=== PATIENT | female | born 1990 | race Hispanic/Latino ===

== ENCOUNTER 2017-04-12 08:51 | Inpatient (IN) | payer SELFPAY ==
[~2017-04-12] VITALS: Ht 149.9 cm; Wt 88.3 kg
[2017-04-12] MEDS ORDERED: ACETAMINOPHEN 325 MG TAB ONE ×2 (09:03→20:05)
[2017-04-12] MEDS ORDERED: SODIUM CHLORIDE 0.9% 1000ML 2,000 ML IV ONE (09:09)
[2017-04-12 09:25] LABS: HEMATOCRIT 27.9 % (36-48); MEAN CORPUSCULAR HEMOGLOBIN 18.1 pg (27.0-33.0); MEAN CORPUSCULAR HGB CONC 30.9 g/dL (32.0-36.0); MEAN CORPUSCULAR VOLUME 58.5 fL (79-99); PLATELET COUNT (AUTO) 252 K/uL (130-400); RED BLOOD CELL COUNT(AUTO) 4.77 MIL/uL (4.00-5.50); RED CELL DISTRIBUTION WIDTH 20.2 % (11.0-15.5)
[2017-04-12 09:29] LABS: WHITE BLOOD COUNT (AUTO) 36.1 K/uL (4.8-10.8)
[2017-04-12 09:30] LABS: RAPID GROUP A STREP NEGATIVE (NEGATIVE)
[2017-04-12] MEDS ORDERED: CEFTRIAXONE SODIUM 1 GM ONE ×2 (09:33→14:12)
[2017-04-12 09:35] LABS: CREATININE 1.5 mg/dL (0.5-1.5); POTASSIUM 3.2 mmol/L (3.5-5.1)
[2017-04-12 09:49] LABS: BAND NEUTROPHILS % (MANUAL) 26 % (0-2); LYMPHOCYTES % (MANUAL) 1 % (22-44); MAN.DIFF COMMENT-IMPRESSION MANUAL DIFFERENTIAL; SEGMENTED NEUTROPHILS % 73 % (40-70)
[2017-04-12 10:19] LABS: APPEARANCE,URINE Cloudy (CLEAR); BILIRUBIN,URINE Negative (NEGATIVE); COLOR,URINE Yellow (YELLOW); GLUCOSE, URINE (UA) Negative (NEGATIVE); KETONES,URINE Negative (NEGATIVE); LEUKOCYTE ESTERASE ,URINE Trace (NEGATIVE); NITRATE,URINE Negative (NEGATIVE); OCCULT BLOOD,URINE Negative (NEGATIVE); PH,URINE 5.5 (5.0-8.0); PROTEIN,URINE POS 1+ (NEGATIVE)
[2017-04-12 10:22] LABS: HCG,QUAL RESULT NEGATIVE (NEGATIVE)
[2017-04-12] MEDS ORDERED: AZITHROMYCIN 500MG+NS 250ML 250 ML IV ONE (10:49)
[2017-04-12 11:06] LABS: BACTERIA,URINE Rare /HPF (None Seen); RBC,URINE 0-1 /HPF (0-1)
[2017-04-12 11:07] LABS: MUCUS,URINE Rare LPF (None Seen); SQUAMOUS EPITHELIAL CELL,UR Few /LPF (0-2)
[2017-04-12] MEDS ORDERED: SODIUM CHLORIDE 0.9% 1000ML 1,000 ML IV ONE ×2 (12:23→14:12)
[2017-04-12] MEDS ORDERED: ACETAMINOPHEN-CODEINE ELIXIR 5 ML UDCUP ONE (17:10)
[2017-04-12] MEDS ORDERED: IPRATROPIUM/ALBUTEROL SULFATE 3 ML SOLUTION IH ONE (19:54)
[2017-04-12 21:00] VITALS: BP 98/72
[2017-04-12] MEDS ORDERED: ONDANSETRON HCL 4 MG/2 ML VIAL IV PRN (22:30)
[2017-04-12] MEDS ORDERED: HYDRALAZINE HCL 20 MG/ML VIAL IV PRN (22:30)
[2017-04-12] MEDS: SODIUM CHLORIDE 0.9% 1000ML 1,000 ML IV SCH (22:57)
[2017-04-12] MEDS: METHYLPREDNISOLONE SOD SUCC 125MG/2ML VIAL IV SCH (22:57)
[2017-04-12] MEDS: POTASSIUM CHLORIDE 10% ELIXIR 20 MEQ/15 ML UDCUP PO SCH (22:57)
[2017-04-12] MEDS: ACETAMINOPHEN 325 MG TAB PO PRN (23:55)
[2017-04-13] VITALS: BP 99/59
[2017-04-13] MEDS: IPRATROPIUM/ALBUTEROL SULFATE 3 ML SOLUTION IH SCH ×6 (02:02→22:34)
[2017-04-13 04:00] VITALS: BP 97/50
[2017-04-13 05:41] LABS: EOSINOPHILS % (AUTO) 0.2 % (0.0-8.0); HEMATOCRIT 23.2 % (36-48); LYMPHOCYTES % (AUTO) 2.8 % (21.0-51.0); MEAN CORPUSCULAR HEMOGLOBIN 18.4 pg (27.0-33.0); MEAN CORPUSCULAR HGB CONC 31.2 g/dL (32.0-36.0); MONOCYTES % (AUTO) 2.2 % (3.0-13.0); NEUTROPHILS % (AUTO) 94.8 % (40.0-77.0); PLATELET COUNT (AUTO) 226 K/uL (130-400); RED BLOOD CELL COUNT(AUTO) 3.93 MIL/uL (4.00-5.50); RED CELL DISTRIBUTION WIDTH 20.6 % (11.0-15.5)
[2017-04-13 06:09] LABS: BILIRUBIN,TOTAL 0.5 mg/dL (0.2-1.0); CREATININE 0.8 mg/dL (0.5-1.5); POTASSIUM 3.4 mmol/L (3.5-5.1); TOTAL PROTEIN, SERUM 6.1 g/dL (6.0-8.3)
[2017-04-13 07:00] VITALS: BP 104/63
[2017-04-13] MEDS: PANTOPRAZOLE SODIUM 40 MG TABLET.DR PO SCH (08:40)
[2017-04-13] MEDS: CEFTRIAXONE SODIUM 1 GM IVP SCH ×2 (08:40→22:00)
[2017-04-13] MEDS: BENZONATATE 100 MG CAPSULE PO SCH ×3 (08:40→21:59)
[2017-04-13] MEDS: SODIUM CHLORIDE 0.9% 1000ML 1,000 ML IV SCH ×2 (08:41→17:22)
[2017-04-13 11:00] VITALS: BP 107/70
[2017-04-13] MEDS: AZITHROMYCIN 500MG+NS 250ML 250 ML IV SCH (11:58)
[2017-04-13] MEDS: WATER FOR INJECTION,STERILE 5 ML VIAL INJ SCH ×2 (12:02→22:00)
[2017-04-13] MEDS ORDERED: CEFTRIAXONE SODIUM 1 GM IVP SCH (14:00)
[2017-04-13 16:00] VITALS: BP 113/58
[2017-04-13] MEDS: ACETAMINOPHEN 325 MG TAB PO PRN (17:29)
[2017-04-13 20:00] VITALS: BP 110/62
[2017-04-13] MEDS: ACETAMINOPHEN-CODEINE 300/30MG TAB PO PRN (22:25)
[2017-04-13] MEDS: METHYLPREDNISOLONE SOD SUCC 125MG/2ML VIAL IV SCH (23:11)
[2017-04-13] MEDS: POTASSIUM CHLORIDE 10% ELIXIR 20 MEQ/15 ML UDCUP PO SCH (23:12)
[2017-04-14] VITALS (7 sets, daily range): BP systolic 108–133; BP diastolic 55–82
[2017-04-14] MEDS: IPRATROPIUM/ALBUTEROL SULFATE 3 ML SOLUTION IH SCH ×6 (01:47→22:45)
[2017-04-14 04:36] LABS: MEAN CORPUSCULAR HEMOGLOBIN 18.5 pg (27.0-33.0); MEAN CORPUSCULAR HGB CONC 31.3 g/dL (32.0-36.0); MEAN CORPUSCULAR VOLUME 59.1 fL (79-99); PLATELET COUNT (AUTO) 243 K/uL (130-400); RED BLOOD CELL COUNT(AUTO) 3.72 MIL/uL (4.00-5.50); RED CELL DISTRIBUTION WIDTH 20.9 % (11.0-15.5); WHITE BLOOD COUNT (AUTO) 13.2 K/uL (4.8-10.8)
[2017-04-14 04:51] LABS: BAND NEUTROPHILS % (MANUAL) 5 % (0-2); LYMPHOCYTES % (MANUAL) 6 % (22-44); MAN.DIFF COMMENT-IMPRESSION MANUAL DIFFERENTIAL; MONOCYTES % (MANUAL) 4 % (2-9); SEGMENTED NEUTROPHILS % 85 % (40-70)
[2017-04-14 04:52] LABS: PLATELET MORPHOLOGY COMMENT ADEQUATE
[2017-04-14] MEDS: SODIUM CHLORIDE 0.9% 1000ML 1,000 ML IV SCH ×2 (04:59→14:00)
[2017-04-14 05:01] LABS: CREATININE 0.8 mg/dL (0.5-1.5); MAGNESIUM 2.2 mg/dL (1.80-2.40); POTASSIUM 3.1 mmol/L (3.5-5.1)
[2017-04-14] MEDS: CEFTRIAXONE SODIUM 1 GM IVP SCH ×2 (08:17→22:20)
[2017-04-14] MEDS: WATER FOR INJECTION,STERILE 5 ML VIAL INJ SCH ×2 (08:17→22:21)
[2017-04-14] MEDS: PANTOPRAZOLE SODIUM 40 MG TABLET.DR PO SCH (08:17)
[2017-04-14] MEDS: BENZONATATE 100 MG CAPSULE PO SCH ×3 (08:17→22:21)
[2017-04-14] MEDS: AZITHROMYCIN 500MG+NS 250ML 250 ML IV SCH (11:52)
[2017-04-14] MEDS ORDERED: POTASSIUM CHLORIDE 10% ELIXIR 20 MEQ/15 ML UDCUP PO PRN (18:45)
[2017-04-14] MEDS ORDERED: POTASSIUM CHLORIDE 20MEQ/100ML 100 ML IV PRN (18:45)
[2017-04-14] MEDS ORDERED: LIDOCAINE HCL-MPF 1% 2ML VIAL IVP PRN (18:45)
[2017-04-14] MEDS: POTASSIUM CHLORIDE 20 MEQ ERTAB PO PRN (19:22)
[2017-04-14] MEDS: LACTULOSE 20 GM/30 ML UDCUP PO PRN (19:22)
[2017-04-15] MEDS: IPRATROPIUM/ALBUTEROL SULFATE 3 ML SOLUTION IH SCH ×6 (02:43→22:53)
[2017-04-15] MEDS: ACETAMINOPHEN-CODEINE 300/30MG TAB PO PRN ×2 (03:03→22:04)
[2017-04-15 04:04] VITALS: BP 120/73
[2017-04-15 06:34] LABS: HEMATOCRIT 25.3 % (36-48); MEAN CORPUSCULAR HEMOGLOBIN 19.5 pg (27.0-33.0); MEAN CORPUSCULAR HGB CONC 31.4 g/dL (32.0-36.0); PLATELET COUNT (AUTO) 277 K/uL (130-400); RED BLOOD CELL COUNT(AUTO) 4.07 MIL/uL (4.00-5.50); RED CELL DISTRIBUTION WIDTH 22.7 % (11.0-15.5); WHITE BLOOD COUNT (AUTO) 13.8 K/uL (4.8-10.8)
[2017-04-15 06:40] LABS: CREATININE 0.6 mg/dL (0.5-1.5); MAGNESIUM 2.2 mg/dL (1.80-2.40); POTASSIUM 3.5 mmol/L (3.5-5.1)
[2017-04-15] MEDS: POTASSIUM CHLORIDE 20 MEQ ERTAB PO PRN ×2 (06:52→08:43)
[2017-04-15 07:00] VITALS: BP 118/67
[2017-04-15 07:49] LABS: BAND NEUTROPHILS % (MANUAL) 1 % (0-2); LYMPHOCYTES % (MANUAL) 15 % (22-44); MAN.DIFF COMMENT-IMPRESSION MANUAL DIFFERENTIAL; MONOCYTES % (MANUAL) 7 % (2-9); PLATELET MORPHOLOGY COMMENT ADEQUATE; SEGMENTED NEUTROPHILS % 77 % (40-70)
[2017-04-15] MEDS: PANTOPRAZOLE SODIUM 40 MG TABLET.DR PO SCH (08:43)
[2017-04-15] MEDS: BENZONATATE 100 MG CAPSULE PO SCH ×3 (08:43→22:03)
[2017-04-15] MEDS: SODIUM CHLORIDE 0.9% 1000ML 1,000 ML IV SCH ×2 (08:44→22:05)
[2017-04-15] MEDS: CEFTRIAXONE SODIUM 1 GM IVP SCH ×2 (08:44→22:04)
[2017-04-15] MEDS: WATER FOR INJECTION,STERILE 5 ML VIAL INJ SCH (08:44)
[2017-04-15] MEDS: LACTULOSE 20 GM/30 ML UDCUP PO PRN (08:44)
[2017-04-15 11:00] VITALS: BP 127/74
[2017-04-15] MEDS: GUAIFENESIN 600 MG TABLET.ER PO SCH ×2 (12:05→22:03)
[2017-04-15] MEDS: AZITHROMYCIN 500MG+NS 250ML 250 ML IV SCH (12:05)
[2017-04-15 16:00] VITALS: BP 132/77
[2017-04-15 20:06] VITALS: BP 119/75
[2017-04-15 23:13] VITALS: BP 132/82
[2017-04-16] MEDS: IPRATROPIUM/ALBUTEROL SULFATE 3 ML SOLUTION IH SCH ×6 (02:45→21:41)
[2017-04-16 03:45] VITALS: BP 129/75
[2017-04-16 06:00] LABS: MEAN CORPUSCULAR HEMOGLOBIN 19.5 pg (27.0-33.0); MEAN CORPUSCULAR HGB CONC 31.8 g/dL (32.0-36.0); MEAN CORPUSCULAR VOLUME 61.3 fL (79-99); PLATELET COUNT (AUTO) 321 K/uL (130-400); RED CELL DISTRIBUTION WIDTH 22.9 % (11.0-15.5); WHITE BLOOD COUNT (AUTO) 9.6 K/uL (4.8-10.8)
[2017-04-16] MEDS: SODIUM CHLORIDE 0.9% 1000ML 1,000 ML IV SCH ×2 (06:00→16:00)
[2017-04-16 07:17] LABS: EOSINOPHILS % (MANUAL) 2 % (1-6); LYMPHOCYTES % (MANUAL) 49 % (22-44); MAN.DIFF COMMENT-IMPRESSION MANUAL DIFFERENTIAL; MONOCYTES % (MANUAL) 7 % (2-9); PLATELET MORPHOLOGY COMMENT ADEQUATE; REACTIVE LYMPHOCYTES 1 % (0-0); SEGMENTED NEUTROPHILS % 41 % (40-70)
[2017-04-16 07:54] VITALS: BP 127/81
[2017-04-16 10:57] VITALS: BP 122/73
[2017-04-16] MEDS: CEFTRIAXONE SODIUM 1 GM IVP SCH ×2 (11:39→22:09)
[2017-04-16] MEDS: GUAIFENESIN 600 MG TABLET.ER PO SCH ×2 (11:39→22:10)
[2017-04-16] MEDS: PANTOPRAZOLE SODIUM 40 MG TABLET.DR PO SCH (11:40)
[2017-04-16] MEDS: BENZONATATE 100 MG CAPSULE PO SCH ×3 (11:40→22:10)
[2017-04-16] MEDS: ACETAMINOPHEN-CODEINE 300/30MG TAB PO PRN ×2 (11:41→22:10)
[2017-04-16] MEDS: AZITHROMYCIN 500MG+NS 250ML 250 ML IV SCH (11:41)
[2017-04-16] MEDS: WATER FOR INJECTION,STERILE 5 ML VIAL INJ SCH (14:00)
[2017-04-16 16:49] VITALS: BP 113/76
[2017-04-16 19:50] VITALS: BP 121/76
[2017-04-16 23:34] VITALS: BP 119/64
[2017-04-17] MEDS: IPRATROPIUM/ALBUTEROL SULFATE 3 ML SOLUTION IH SCH ×6 (02:34→22:25)
[2017-04-17] MEDS: SODIUM CHLORIDE 0.9% 1000ML 1,000 ML IV SCH ×2 (02:58→12:00)
[2017-04-17 03:50] VITALS: BP 120/71
[2017-04-17 04:44] LABS: HEMATOCRIT 29.4 % (36-48); MEAN CORPUSCULAR HEMOGLOBIN 20.3 pg (27.0-33.0); MEAN CORPUSCULAR HGB CONC 32.7 g/dL (32.0-36.0); NUCLEATED RED BLOOD CELLS 0.2 % (0.0-0.19); PLATELET COUNT (AUTO) 353 K/uL (130-400); RED BLOOD CELL COUNT(AUTO) 4.74 MIL/uL (4.00-5.50); RED CELL DISTRIBUTION WIDTH 22.2 % (11.0-15.5); WHITE BLOOD COUNT (AUTO) 9.1 K/uL (4.8-10.8)
[2017-04-17 07:02] LABS: % IRON SATURATION 12.2 % (22-44)
[2017-04-17 08:01] VITALS: BP 116/70
[2017-04-17] MEDS: BENZONATATE 100 MG CAPSULE PO SCH ×3 (09:43→22:00)
[2017-04-17] MEDS: PANTOPRAZOLE SODIUM 40 MG TABLET.DR PO SCH (09:43)
[2017-04-17] MEDS: GUAIFENESIN 600 MG TABLET.ER PO SCH ×2 (09:44→22:00)
[2017-04-17] MEDS: ACETAMINOPHEN-CODEINE 300/30MG TAB PO PRN ×2 (09:53→22:01)
[2017-04-17] MEDS: CEFTRIAXONE SODIUM 1 GM IVP SCH ×2 (09:53→21:59)
[2017-04-17] MEDS: AZITHROMYCIN 500MG+NS 250ML 250 ML IV SCH (09:53)
[2017-04-17 11:08] VITALS: BP 110/70
[2017-04-17] MEDS: FERROUS SULFATE 325 MG TABLET.DR PO SCH ×2 (13:21→22:01)
[2017-04-17] MEDS: WATER FOR INJECTION,STERILE 5 ML VIAL INJ SCH (13:23)
[2017-04-17] MEDS ORDERED: LEVOFLOXACIN 750 MG/D5W 150 ML 150 ML IV SCH (14:00)
[2017-04-17 16:40] VITALS: BP 109/72
[2017-04-17 19:35] VITALS: BP 117/74
[2017-04-17 23:55] VITALS: BP 109/62
[2017-04-18] MEDS: IPRATROPIUM/ALBUTEROL SULFATE 3 ML SOLUTION IH SCH ×4 (02:30→13:51)
[2017-04-18] MEDS: SODIUM CHLORIDE 0.9% 1000ML 1,000 ML IV SCH ×2 (02:46→08:00)
[2017-04-18 03:40] VITALS: BP 117/71
[2017-04-18 07:41] VITALS: BP 109/62
[2017-04-18] MEDS: BENZONATATE 100 MG CAPSULE PO SCH (11:03)
[2017-04-18] MEDS: FERROUS SULFATE 325 MG TABLET.DR PO SCH (11:03)
[2017-04-18] MEDS: GUAIFENESIN 600 MG TABLET.ER PO SCH (11:03)
[2017-04-18] MEDS: CEFTRIAXONE SODIUM 1 GM IVP SCH (11:04)
[2017-04-18] MEDS: PANTOPRAZOLE SODIUM 40 MG TABLET.DR PO SCH (11:04)
[2017-04-18 11:25] VITALS: BP 116/61
== END 2017-04-18 15:40 | disposition home or self-care (01) | DRG 871 ==
LOC: EDH 08:51 → INTOOBSV 12:45 → EDHIP 12:45 → OBSVTOIN 12:45 → 3DH 20:39
PROVIDERS: ADMIT Family Medicine; ATTEND Family Medicine
PROC: 30233N1 Transfusion of Nonautologous Red Blood Cells into Peripheral Vein, Percutaneous Approach (ICD-10-PCS; principal; 2017-04-12)
DX: A41.9 Sepsis, unspecified organism (principal); J18.1 Lobar pneumonia, unspecified organism; D62 Acute posthemorrhagic anemia; E87.1 Hypo-osmolality and hyponatremia; K92.2 Gastrointestinal hemorrhage, unspecified; E66.9 Obesity, unspecified; D50.0 Iron deficiency anemia secondary to blood loss (chronic); Z68.39 Body mass index [BMI] 39.0-39.9, adult; Z88.0 Allergy status to penicillin; Z88.8 Allergy status to other drugs, medicaments and biological substances
CPT/HCPCS: 36415; 36430; 71045; 71250; 80048; 80053; 81001; 81025; 82270; 82607; 82728; 82746; 83540; 83550; 83605; 83735; 84443; 85025; 85027; 86850; 86900; 86901; 86922; 87040; 87804; 87880; 88313; 94640; 94664; 99291; J0456; J0696; J1956; J2405; J2930; J7030; P9016

== ENCOUNTER 2018-04-17 22:11 | Emergency (ER) | payer BC ==
[2018-04-17] MEDS ORDERED: ACETAMINOPHEN EXTRA STRENGTH 500 MG TABLET ONE (22:24)
[2018-04-17] MEDS ORDERED: OSELTAMIVIR PHOSPHATE 75 MG CAP ONE (23:39)
== END 2018-04-18 00:09 | disposition home or self-care (01) ==
LOC: EDH 22:11
DX: J10.1 Influenza due to other identified influenza virus with other respiratory manifestations (principal)
CPT/HCPCS: 71046; 87804

== ENCOUNTER 2018-06-10 18:54 | Emergency (ER) | payer BC ==
[2018-06-10 19:34] LABS: RAPID GROUP A STREP NEGATIVE (NEGATIVE)
== END 2018-06-10 19:53 | disposition home or self-care (01) ==
LOC: EDH 18:54
DX: J06.9 Acute upper respiratory infection, unspecified (principal)
CPT/HCPCS: 87804; 87880